=== PATIENT | male | born 1985 | race Caucasian/White ===

== ENCOUNTER 2020-11-10 06:00 | Outpatient (RCR) | payer OTHER, SELFPAY | END 2020-12-10 23:59 | disposition home or self-care (01) | LOC: SPT 06:00 | PROVIDERS: Family Provider Family Medicine; Visit Provider Family Medicine | DX: M25.519 Pain in unspecified shoulder (principal) | CPT/HCPCS: 97110; 97140; 97161 ==

== ENCOUNTER 2020-12-11 06:00 | Outpatient (RCR) | payer OTHER, SELFPAY | END 2021-01-09 23:59 | disposition home or self-care (01) | LOC: SPT 06:00 | PROVIDERS: Family Provider Family Medicine; Visit Provider Family Medicine | DX: M25.519 Pain in unspecified shoulder (principal) | CPT/HCPCS: 97110 ==

== ENCOUNTER 2021-01-16 15:23 | Outpatient (RCR) | payer OTHER, SELFPAY | END 2021-01-29 23:59 | disposition home or self-care (01) | LOC: SPT 15:23 | PROVIDERS: Family Provider Family Medicine; Visit Provider Family Medicine | DX: M25.512 Pain in left shoulder (principal); M25.511 Pain in right shoulder | CPT/HCPCS: 97110; 97140 ==

== ENCOUNTER 2022-11-08 08:36 | Outpatient (RCR) | payer OTHER, SELFPAY | END 2022-11-09 23:59 | disposition home or self-care (01) | LOC: SPT 08:36 | PROVIDERS: PCP Family Medicine; Visit Provider Family Medicine | DX: M25.512 Pain in left shoulder (principal) | CPT/HCPCS: 97161 ==

== ENCOUNTER 2022-11-10 06:00 | Outpatient (RCR) | payer OTHER, SELFPAY | END 2022-12-10 23:59 | disposition home or self-care (01) | LOC: SPT 06:00 | PROVIDERS: PCP Family Medicine; Visit Provider Family Medicine | DX: M25.512 Pain in left shoulder (principal) | CPT/HCPCS: 97110 ==